=== PATIENT | male | born 1995 | race American Indian/Alaskan Native ===

== ENCOUNTER 2018-08-26 00:25 | Emergency (ER) | payer SELFPAY ==
[2018-08-26] MEDS ORDERED: DUONEB *Not for PRN Use IH ONE ×2 (00:34→01:30)
[2018-08-26] MEDS ORDERED: SOLU-Medrol IM ONE (01:30)
[2018-08-26] MEDS ORDERED: CATAPRES PO ONE (01:30)
[2018-08-26] MEDS ORDERED: TYLENOL ONE (01:50)
[2018-08-26] MEDS ORDERED: TYLENOL PO ONE (01:52)
--- NOTE | 2018-08-26 02:35 | Emergency Department Report ---
ED Peds Dyspnea HPI - General Chief Complaint: Dyspnea/Respdistress Stated Complaint: ASTHMA ATTACK Source: patient Mode of arrival: Ambulatory Limitations: No Limitations - History of Present Illness Initial Comments: Patient is a 23-year-old male with a history of chronic bronchitis who presents to the ED, no acute onset persistent nasal and sinus congestion, frontal sinus pressure and headache, dry cough with shortness of breath and wheezing for the last 2 days. Patient states that he has been taking cyut-jir-dypeewy medications with no relief. The patient denies fever, chills, nausea, vomiting, chest pain, dizziness, headache, abdominal pain, palpitations or diarrhea or vision changes. MD Complaint: cough, wheezes, difficulty breathing -: Sudden, days(s) (2) Fever: No Severity scale (0 -10): 4 Quality: dull Consistency: constant Provoking Factors: none known Associated Symptoms: cough, sore throat. denies: coryza, vomiting, chest pain, drooling, hoarseness, decreased activity, decreased PO intake Treatments Prior to Arrival: Acetaminophen - Related Data Previous Rx's Medication Instructions Recorded Last Taken Type ALBUTEROL Inhaler (OR & NICU) 1 puff IH Q4H PRN #1 inha 08/26/18 Unknown Rx [ProAir HFA Inhaler] Amoxicillin [Trimox CAP] 500 mg PO Q8H #30 capsule 08/26/18 Unknown Rx Benzonatate [Tessalon Perles] 100 mg PO Q8HR #30 capsule 08/26/18 Unknown Rx Cetirizine HCl [ZyrTEC 10mg cap] 10 mg PO DAILY #30 capsule 08/26/18 Unknown Rx Ibuprofen [Motrin] 800 mg PO Q8HR PRN #20 tablet 08/26/18 Unknown Rx Prednisone [predniSONE 10 mg 10 mg PO .TAPER #21 tab.ds.pk 08/26/18 Unknown Rx (6-Day Pack, 21 Tabs)] Allergies Allergy/AdvReac Type Severity Reaction Status Date / Time seafood Allergy Unknown Uncoded 08/26/18 00:32 ED Review of Systems ROS: Stated complaint: ASTHMA ATTACK Other details as noted in HPI Comment: All other systems reviewed and negative Constitutional: no symptoms reported, see HPI. denies: chills, diaphoresis, fever, malaise Eyes: as per HPI. denies: eye pain, eye discharge, vision change ENT: as per HPI, throat pain, congestion. denies: ear pain, dental pain Respiratory: see HPI, cough, shortness of breath, wheezing Cardiovascular: as per HPI. denies: chest pain, palpitations, dyspnea on exertion, edema, paroxysmal nocturnal dyspnea Endocrine: no symptoms reported. denies: see HPI, excessive sweating, flushing, intolerance to cold, increased hunger, increased thirst, unexplained weight gain Gastrointestinal: as per HPI. denies: abdominal pain, nausea, vomiting, diarrhea, constipation, hematemesis, hematochezia Genitourinary: as per HPI. denies: frequency, discharge, testicular pain, testicular mass Musculoskeletal: as per HPI. denies: back pain, joint swelling, arthralgia, myalgia Skin: as per HPI. denies: rash, lesions, change in color, change in hair/nails Neurological: as per HPI, headache. denies: paresthesias, confusion Psychiatric: as per HPI. denies: anxiety, depression Hematological/Lymphatic: as per HPI Pediatric Past Medical History - Chronic Health Problems Hx Asthma: Yes ED Peds Dyspnea EXAM - General General appearance: alert Limitations: No Limitations - Head Head exam: Positive: atraumatic, normocephalic - Eye Eye Exam: Normal Apperance, PERRL, EOMI - ENT ENT exam: Positive: normal exam, normal orophraynx, mucous membranes moist, TM's normal bilaterally, normal external ear exam - Neck Neck exam: Positive: normal inspection. Negative: tenderness, meningismus, full ROM, lymphadenopathy - Respiratory Respiratory Exam: Positive: Wheezes. Negative: Stidor with Excitation, Respiratory Distress, Chest Wall Tender, Chest Wall Non-Tender, Accessory Muscle Use, Decreased Breath Sounds, Prolonged Expiratory - Cardiovascular Cardiovascular Exam: Positive: tachycardia, normal heart sounds Peripheral pulses: 3+/4+: Carotid (R), Carotid (L), Radial (R), Radial (L), Femoral (R), Femoral (L), Posterior Tibialis (R), Posterior Tibialis (L), Dorsalis Pedis (R), Dorsalis Pedis (L) - GI/Abdominal GI/Abdominal exam: Positive: soft, normal bowel sounds. Negative: tenderness, guarding, hyperactive bowel sounds, hypoactive bowel sounds, organomegaly - Rectal Rectal exam: Positive: deferred - Extremities Extremities exam: Positive: normal inspection, full ROM, normal capillary refill. Negative: tenderness, pedal edema - Back Back exam: normal inspection, full ROM. denies: CVA tenderness (L), muscle spasm, paraspinal tenderness - Neurological Neurological Exam: Positive: Alert, Oriented X3, CN II-XII Intact, Normal Gait, Reflexes Normal - Psychiatric Psychiatric exam: Positive: normal affect - Skin Skin exam: Positive: warm, dry, intact ED Course Vital Signs 08/26/18 08/26/18 08/26/18 00:31 01:45 01:53 Temperature 97.8 F Pulse Rate 111 H 104 H Respiratory 18 16 16 Rate Blood Pressure 189/106 Blood Pressure 152/91 [Left] O2 Sat by Pulse 96 97 Oximetry 08/26/18 08/26/18 01:57 02:51 Temperature Pulse Rate 94 H Respiratory 16 18 Rate Blood Pressure Blood Pressure 131/83 [Left] O2 Sat by Pulse 97 96 Oximetry - Reevaluation(s) Reevaluation #1: 08/26/18 02:42 Patient is alert and oriented 3 and is not in distress. Patient was treated in the ED with DuoNeb twice and also received Solu-Medrol injection. On reevaluation, the patient felt much better and the wheezing has resolved. Patient discharged home on medications. ED Medical Decision Making - Medical Decision Making Patient was treated in the ED with DuoNeb. The tachycardia the patient initially had resolved prior to being discharged today from the hospital. The hypertension that was significant on arrival and also improved. Patient was discharged home on medications since his symptoms are mainly acute upper respiratory in nature. - Differential Diagnosis acute upper respiratory infection, acute bronchitis Critical care attestation.: If time is entered above; I have spent that time in minutes in the direct care of this critically ill patient, excluding procedure time. ED Disposition Clinical Impression: Acute upper respiratory infection Acute bronchitis Qualifiers: Bronchitis organism: unspecified organism Qualified Code(s): J20.9 - Acute bronchitis, unspecified Disposition: -01 TO HOME OR SELFCARE Is pt being admited?: No Does the pt Need Aspirin: No Condition: Stable Instructions: Upper Respiratory Infection (ED), Acute Bronchitis (ED) Additional Instructions: Take medications with food, drink plenty of present follow-up with your primary care physician in 7-10 days for reevaluation. Return to the ED immediately if symptoms get worse. Prescriptions: Ibuprofen [Motrin] 800 mg PO Q8HR PRN #20 tablet PRN Reason: Pain , Severe (7-10) Prednisone [predniSONE 10 mg (6-Day Pack, 21 Tabs)] 10 mg PO .TAPER #21 tab.ds.pk ALBUTEROL Inhaler (OR & NICU) [ProAir HFA Inhaler] 1 puff IH Q4H PRN #1 inha PRN Reason: Dyspnea Benzonatate [Tessalon Perles] 100 mg PO Q8HR #30 capsule Amoxicillin [Trimox CAP] 500 mg PO Q8H #30 capsule Cetirizine HCl [ZyrTEC 10mg cap] 10 mg PO DAILY #30 capsule Referrals: KATHERINE AGUDELO MD [Primary Care Provider] - 3-5 Days Time of Disposition: 02:35 Print Language: MALAYSIAN
[2018-08-26 02:52] VITALS: BP 131/83
== END 2018-08-26 03:10 | disposition home or self-care (01) ==
LOC: ED 00:25
DX: J06.9 Acute upper respiratory infection, unspecified (principal); J02.9 Acute pharyngitis, unspecified; J45.909 Unspecified asthma, uncomplicated; Z91.013 Allergy to seafood
CPT/HCPCS: 94640; 96372; 99283; J2930